=== PATIENT | female | born 1960 | race Caucasian/White ===

== ENCOUNTER → 2023-09-16 | Outpatient (CLI) | payer OTHER | LOC: RAD 14:53 → MAMMO 15:00 | DX: Z82.62 Family history of osteoporosis (principal) ==

== ENCOUNTER 2023-09-27 17:23 | Emergency (ER) | payer MEDICARE, OTHER ==
[~2023-09-27] VITALS: Ht 175.3 cm; Wt 71.0 kg
[2023-09-27] MEDS ORDERED: INSULIN AS100 UNIT/2 SQ (17:43)
[2023-09-27] MEDS ORDERED: TERBINAFINE250 MG PO (17:43)
[2023-09-27] MEDS ORDERED: FOLIC ACID1 MG PO (17:43)
[2023-09-27] MEDS ORDERED: LOSARTAN POTASS1 TA4 PO (17:44)
[2023-09-27] MEDS ORDERED: METHOTREXATE2.5 MG PO (17:44)
[2023-09-27] MEDS ORDERED: METAMUCIL GUMMIES PO (17:45)
[2023-09-27] MEDS ORDERED: [UNRECOGNIZED DRUG - SUPPLY] PO (17:46)
[2023-09-27] MEDS ORDERED: CENTRUM WOMEN PO (17:46)
[2023-09-27] MEDS ORDERED: PREVAGEN PO (17:46)
[2023-09-27 17:48] LABS: BASO # 0.06 K/mm3 (0.02-0.10); HEMATOCRIT 35.3 % (37.0-47.0); HEMOGLOBIN 12.4 g/dL (12.5-16.0); LYMPH# 0.96 K/mm3 (1.50-4.00); MEAN CELL VOLUME 92 fl (78-100); MEAN CORPUSCULAR HEMOGLOBIN 32 pg (27-31); MEAN CORPUSCULAR HGB CONC 35 g/dL (33-37); MEAN PLATELET VOLUME 9.5 fl (7.4-10.4); MONO # 0.76 K/mm3 (0.20-0.80); NEU # 2.58 K/mm3 (1.40-6.50); PLATELET COUNT 208 K/mm3 (130-400); RED BLOOD COUNT 3.86 M/mm3 (4.10-5.30); RED CELL DISTRIBUTION WIDTH 11.7 % (11.5-14.5); WHITE BLOOD COUNT 4.4 K/mm3 (4.8-10.8)
[2023-09-27 17:55] LABS: ALBUMIN 4.4 g/dL (3.4-4.8)
[2023-09-27 17:56] LABS: CALCIUM 9.5 mg/dL (8.3-10.5)
[2023-09-27 17:57] LABS: TOTAL PROTEIN 6.9 g/dL (6.2-8.1)
[2023-09-27 17:59] LABS: TOTAL BILIRUBIN 0.3 mg/dL (0.2-1.2)
[2023-09-27] MEDS ORDERED: PAXLOVID 300-11 EACH PO (18:17)
[2023-09-27] MEDS ORDERED: NS 1,000 ML IV SCH (18:30)
[2023-09-27 20:20] VITALS: BP 178/83
== END 2023-09-27 20:20 | disposition home or self-care (01) ==
LOC: ED 17:23
PROVIDERS: Family Medicine
DX: U07.1 COVID-19 (principal); R19.7 Diarrhea, unspecified; E87.1 Hypo-osmolality and hyponatremia; E86.0 Dehydration; R11.10 Vomiting, unspecified
CPT/HCPCS: J7030; J7120

== ENCOUNTER → 2024-01-27 | Day surgery (SDC) | payer MEDICARE, OTHER ==
[~2024-01-27] MED LIST: CENTRUM WOMEN PO; FOLIC ACID1 MG PO; INSULIN AS100 UNIT/2 SQ; LOSARTAN POTASS1 TA4 PO; METAMUCIL GUMMIES PO; METHOTREXATE2.5 MG PO; PAXLOVID 300-11 EACH PO; PREVAGEN PO; TERBINAFINE250 MG PO; [UNRECOGNIZED DRUG - SUPPLY] PO; fentaNYL 100 MCG/2 ML VIAL ONE
== END ==
LOC: MSO 09:27
DX: Z12.11 Encounter for screening for malignant neoplasm of colon (principal)
CPT/HCPCS: 00812; J2704; J3010; J7120

== ENCOUNTER → 2024-02-21 | Outpatient (CLI) | payer MEDICARE, OTHER ==
[~2024-02-21] MED LIST changes: -fentaNYL 100 MCG/2 ML VIAL ONE
[2024-02-21 10:26] LABS: BASO # 0.07 K/mm3 (0.02-0.10); EOS # 0.06 K/mm3 (0.04-0.40); EOS % 1.3 % (1.0-5.0); HEMATOCRIT 36.6 % (37.0-47.0); HEMOGLOBIN 12.4 g/dL (12.5-16.0); LYMPH# 1.28 K/mm3 (1.50-4.00); MEAN CELL VOLUME 94 fl (78-100); MEAN CORPUSCULAR HEMOGLOBIN 32 pg (27-31); MEAN CORPUSCULAR HGB CONC 34 g/dL (33-37); MEAN PLATELET VOLUME 9.2 fl (7.4-10.4); MONO # 0.41 K/mm3 (0.20-0.80); NEU # 2.89 K/mm3 (1.40-6.50); PLATELET COUNT 256 K/mm3 (130-400); RED BLOOD COUNT 3.88 M/mm3 (4.10-5.30); RED CELL DISTRIBUTION WIDTH 12.1 % (11.5-14.5); WHITE BLOOD COUNT 4.7 K/mm3 (4.8-10.8)
[2024-02-21 10:30] LABS: ALBUMIN 4.6 g/dL (3.4-4.8); SODIUM 129 mmol/L (136-145)
[2024-02-21 10:31] LABS: CALCIUM 9.5 mg/dL (8.3-10.5)
[2024-02-21 10:32] LABS: GLUCOSE 280 mg/dL (65-105); TOTAL PROTEIN 7.3 g/dL (6.2-8.1)
[2024-02-21 10:33] LABS: CARBON DIOXIDE 27 mmol/L (23-31)
[2024-02-21 10:34] LABS: TOTAL BILIRUBIN 0.8 mg/dL (0.2-1.2)
[2024-02-21 10:38] LABS: AST-SGOT 21 U/L (5-34)
[2024-02-21 10:39] LABS: ALT/SGPT 18 U/L (0-55)
== END ==
LOC: LAB 10:09
PROVIDERS: Internal Medicine
DX: M06.9 Rheumatoid arthritis, unspecified (principal); I10 Essential (primary) hypertension; E10.9 Type 1 diabetes mellitus without complications

== ENCOUNTER → 2024-04-06 | Outpatient (CLI) | payer MEDICARE, OTHER | LOC: MAMMO 15:30 | DX: Z12.31 Encounter for screening mammogram for malignant neoplasm of breast (principal) ==